=== PATIENT | female | born 1975 | race Caucasian/White ===

== ENCOUNTER 2016-12-19 17:15 | Emergency (ER) | payer OTHER | END 2016-12-19 18:03 | disposition home or self-care (01) | LOC: ER 17:15 | DX: J01.90 Acute sinusitis, unspecified (principal); K21.9 Gastro-esophageal reflux disease without esophagitis; E03.9 Hypothyroidism, unspecified; Z90.49 Acquired absence of other specified parts of digestive tract; Z98.51 Tubal ligation status; Z79.899 Other long term (current) drug therapy; Z88.0 Allergy status to penicillin; Z88.1 Allergy status to other antibiotic agents; Z91.010 Allergy to peanuts; Z88.6 Allergy status to analgesic agent ==